=== PATIENT | female | born 1985 | race Caucasian/White ===

== ENCOUNTER 2016-11-18 18:56 | Emergency (ER) | payer OTHER, MEDICAID ==
[2016-11-18 19:04] VITALS: BP 150/97
[2016-11-18 19:10] VITALS: BMI 57.5
--- NOTE | 2016-11-18 20:39 | DR.GENAD ---
HPI - PCP Primary Care Physician: Dalila Hernandez - Complaint/Symptoms Chief Complaint Doctors Comments: Patient state she fell at the door step at home twisting her left foot with pain and swelling of her left foot. Patient states she was on all fours but she could get up and has been hopping on her foot. She denies head trauma or LOC. She denies neck or back pain. She denies fever, chills or headache or dizziness. Chief Complaint:: " Left foot hurting and swelling. Fell down door steps" Self Treatment fo Chief Complaint: Swelling noted to left outside of foot. - Nurses notes reviewed Nurses Notes Review: Yes - Source History Provided: Patient - Mode of Arrival Mode of Arrival: Ambulatory - Timing Onset of Chief Complaint: 11/18/16 Came on: Suddenly - Duration Duration: Constant How lon Duration: Hours - Location Location: left foot - Severity Severity: Moderate - Modifying Factors Worsens:: walking and movement Improves:: nothing PMH - PMH Past Medical History: Yes Past Medical History: Hypertension Past Surgical History: No - Family History History of Family Medical Conditions: Yes Family Medical History: Cancer, Hypertension - Social History Alcohol Use: None Do you use any recreational Drugs:: No Lives With: Family Lives Where: Home - infectious screening Have you traveled outside the country in the last 6 months?: No ROS - Review of Systems Constitutional: No Symptoms Reported. negative: See HPI, Chills, Diaphoresis, Fever, Malaise, Weakness, Irritable, Fatigue, Loss of Appetite, Other Eyes: No Symptoms Reported. negative: See HPI, Eye Pain, Blurred Vision, Tearing, Discharge, Photophobia, Diplopia, Other ENTM: No Symptoms Reported Respiratoy: No Symptoms Reported. negative: See HPI, Productive Cough, Non- Productive Cough, Moist Cough, Dry Cough, Hacking Cough, Barking Cough, Brassy Cough, Orthopnea, Short of Breath, Stridor, Wheezing, Hemoptysis, Other Cardiovascular: No Symptoms Reported Gastrointestinal/Abdominal: No Symptoms Reported. negative: See HPI, Abdominal Pain, Constipation, Diarrhea, Nausea, Vomiting, Food Intolerance, Other Genitourinary: No Symptoms Reported Neurological: No Symptoms Reported, Problems Walking. negative: See HPI, Anxiety, Depressed, Emotional Problems, Headache, Numbness, Paresthesia, Pre- existing Deficit, Seizure, Tingling, Tremors, Weakness, Dizziness, Speech Problem, Other Musculoskeletal: No Symptoms Reported, Left, Foot Integumentary: No Symptoms Reported. negative: See HPI, Change in Color, Change in Hair/Nails, Dryness, Lesions, Lumps, Rash, Itching, Wound, Bruises, Juandice, Other Hematologic/Lymphatic: No Symptoms Reported. negative: See HPI, Anemia, Blood Clots, Easy Bleeding, Easy Bruising, Swollen Glands, Lymphadenopathy, Other Endocrine: No Symptoms Reported. negative: See HPI, Excessive Sweating, Flushing, Intolerance to Cold, Intolerance to Heat, Increased Hunger, Increased Thirst, Increased Urine, Unexplained Weight Gain, Unexplained Weight Loss, Failure to Thrive, Decreased Appetite, Other Psychiatric: No Symptoms Reported PE - Vital Signs Vitals: Temperature 98.0 F Pulse Rate 99 Respiratory Rate 19 Blood Pressure 150/97 O2 Sat by Pulse Oximetry 99 - General Limitations: No Limitations General Appearance: Alert, In Distress (moderate) - Head Head Exam: Normal Inspection, Atraumatic, Normocephalic - Eyes Eye exam: Normal Appearance, PERRL, EOMI. negative: Scleral Icterus, Conjunctival Injection, Nystagmus, Miosis, Mydrasis, Periorbital Swelling, Periorbital Tenderness, Other - ENT ENT Exam: Normal Exam, Normal Oropharynx, Normal External Ear Exam, Mucous Membranes Moist, TM's Normal Bilaterally External Ear Exam: Normal External Inspection TM/Canal Exam: Bilateral Normal Nose Exam: Normal Nose Exam Mouth Exam: Normal Inspection Throat Exam: Normal Inspection - Neck Neck Exam: Normal Inspection, Full ROM, Trachea Midline. negative: Tenderness, Meningismus, Lymphadenopathy, Thyromegaly, Other - Chest Chest Inspection: Normal Inspection, Symmetric Chest Wall Rise. 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 with pain on movement), Normal Capillary Refill - Back Back Exam: Normal Inspection, Full ROM - Neurologic Neurological Exam: Alert, Oriented X3, CN II-XII Intact, Normal Gait - Psychiatric Psychiatric Exam: Normal Affect - Skin Skin Exam: Warm, Dry, Intact, Normal Color ROR - Labs Reviewed Laboratory Results Reviewed?: Yes (all x-ray results reviewed and discussed with patient and mother) - XRAY XRAY Interpreted by: Both (Left foot: Mildly displalced transverse fracture base 5th metatarsal bone with mild swelling soft tissue) - Diagnosis Discharge Problem: Left foot pain Metatarsal bone fracture Qualifiers: Encounter type: initial encounter Metatarsal bone: fifth Fracture type: closed Fracture alignment: displaced Laterality: left Qualified Code(s): S92.352A - Displaced fracture of fifth metatarsal bone, left foot, initial encounter for closed fracture - Discharge Plan Disposition: HOME, SELF-CARE Condition: Stable Prescriptions: Acetaminophen/Codeine Tab [TYLENOL w/CODEINE #3 (300 MG/30 MG) *] 1 tab PO Q4- 6H PRN #45 tab PRN Reason: Pain Ibuprofen [MOTRIN TAB 800 MG *] 800 mg PO BID PRN #60 tab PRN Reason: Pain/Inflammation - Follow ups/Referrals Follow ups/Referrals: Dalila Hernandez [Primary Care Provider] - 3 days VIN ARCOS [STAFF PHYSICIAN] - 3 days BA FARRIS [CONSULTING PHYSICIAN] - 3 days - Instructions Instructions: Metatarsal Fracture, Hypertension, [id number]
--- NOTE | 2016-11-18 20:58 | RAD ---
HISTORY: Pain Study: left foot series Comparison: None Findings: There is a transverse fracture along the base of the 5th metatarsal bone which is mildly displaced. There is mild soft tissue swelling around the midfoot. The tarsal bones are intact and the joint spa dennise are normal. There are small subchondral cysts or erosive changes along the head of the 1st metat arsal bone laterally. IMPRESSION: Mildly displaced transverse fracture along the base of the 5th metatarsal bone with mild soft tissue swelling around the midfoot. Questionable cortical erosions or cysts along the head of the 1st metatarsal bone. Reported By:
== END 2016-11-18 21:47 | disposition home or self-care (01) ==
LOC: ER 18:56
DX: S92.352A Displaced fracture of fifth metatarsal bone, left foot, initial encounter for closed fracture (principal); M79.672 Pain in left foot; W19.XXXA Unspecified fall, initial encounter; Y92.009 Unspecified place in unspecified non-institutional (private) residence as the place of occurrence of the external cause
CPT/HCPCS: 73630; 99282; 99283

== ENCOUNTER → 2016-11-21 | Outpatient (CLI) | payer OTHER, MEDICAID ==
[2016-11-18 19:04] VITALS: BP 150/97
[2016-11-21 10:29] LABS: BASOPHILS # (AUTO) 0.1 X10^3/uL (0.0-0.1); BASOPHILS % (AUTO) 1.2 % (0.2-1.0); EOSINOPHILS # (AUTO) 0.4 x10^3/uL (0.0-0.2); EOSINOPHILS % (AUTO) 3.3 % (0.9-2.9); HEMATOCRIT 38.7 % (36.0-47.0); HEMOGLOBIN 12.3 g/dL (12.0-16.0); LYMPHOCYTES % (AUTO) 17.4 % (21.0-51.0); MEAN CORPUSCULAR HEMOGLOBIN 25.3 pg (27.0-34.0); MEAN CORPUSCULAR HGB CONC 31.7 g/dL (33.0-35.0); MEAN CORPUSCULAR VOLUME 79.8 fL (80.0-100.0); MEAN PLATELET VOLUME 10.3 fL (7.4-11.0); MONOCYTES # (AUTO) 0.8 x10^3/uL (0.3-0.8); MONOCYTES % (AUTO) 7.2 % (0.0-13.0); NEUTROPHILS # (AUTO) 8.3 x10^3/uL (2.2-4.8); NEUTROPHILS % (AUTO) 70.9 % (42.0-75.0); PLATELET COUNT 241 X10^3/uL (150.0-450.0); RED BLOOD COUNT 4.85 X10^6/uL (3.5-5.4); RED CELL DISTRIBUTION WIDTH 16.1 % (11.6-16.5); WHITE BLOOD COUNT 11.7 X10^3/uL (3.6-10.0)
--- NOTE | 2016-11-21 10:47 | RAD ---
HISTORY: Preoperative evaluation Study: Two view chest Comparison: None Findings: The lungs are clear without consolidation, effusion or pneumothorax. The cardiac and mediastinal co ntours are within normal limits. The soft tissues are unremarkable. IMPRESSION: 1. No acute cardiopulmonary abnormality. Reported By:
[2016-11-21 10:50] LABS: HYPOCHROMASIA SLIGHT
[2016-11-21 10:51] LABS: PLATELET MORPHOLOGY COMMENT NORMAL (NORMAL)
[2016-11-21 11:03] LABS: ERYTHROCYTE SEDIMENTATION RATE 18 MM/HOUR (0-20)
[2016-11-21 11:31] LABS: ALANINE AMINOTRANSFERASE 18 Units/L (12-78); ALBUMIN 3.4 g/dL (3.4-5.0); ALKALINE PHOSPHATASE 91 Units/L (46-116); ASPARTATE AMINO TRANSFERASE 13 Units/L (15-37); BLOOD UREA NITROGEN 16 mg/dL (7-18); CALCIUM 8.5 mg/dL (8.5-10.1); CARBON DIOXIDE 23.8 mmol/L (21-32); CHLORIDE 107 mmol/L (98-107); CREATININE 0.83 mg/dL (0.55-1.02); GLUCOSE 100 mg/dL (65-99); SODIUM 142 mmol/L (136-145); TOTAL PROTEIN 7.2 g/dL (6.4-8.2); eGFR BLACK RACES > 60 (>60); eGFR NON BLACK RACES > 60 (>60)
[2016-11-21 12:01] LABS: SERUM PREGNANCY TEST, QUAL NEGATIVE <10 mIU/mL
== END ==
LOC: LAB 09:55
PROVIDERS: ATTEND Orthopaedic Surgery
DX: Z01.818 Encounter for other preprocedural examination (principal); Z01.810 Encounter for preprocedural cardiovascular examination; Z01.811 Encounter for preprocedural respiratory examination; Z11.8 Encounter for screening for other infectious and parasitic diseases; Z32.00 Encounter for pregnancy test, result unknown; S92.352A Displaced fracture of fifth metatarsal bone, left foot, initial encounter for closed fracture; X58.XXXA Exposure to other specified factors, initial encounter
CPT/HCPCS: 36415; 71020; 80053; 84703; 85025; 85652; 87641; 93005; 93010

== ENCOUNTER 2016-11-23 06:36 | Day surgery (SDC) | payer OTHER, MEDICAID ==
[~2016-11-23 06:36] MED LIST: D5 LR 1000 ML 1,000 ML IV ONE; NS 50 ML IV + SPIKE MINIBAG* 100 ML IV ONE
[2016-11-23] MEDS ORDERED: FENTANYL INJ 100 mcg ONE (07:09)
[2016-11-23] MEDS: NAROPIN 0.75% ONE ×2 (07:15→07:24)
[2016-11-23] MEDS: ANCEF VIAL 1 GM ONE ×2 (07:24→07:59)
[2016-11-23] MEDS: XYLOCAINE 2 % (PLAIN) ONE ×2 (07:26→07:32)
[2016-11-23] MEDS ORDERED: MARCAINE 0.25% INJ ONE (07:58)
[2016-11-23] MEDS ORDERED: DIPRIVAN VIAL 20 ML ONE (08:12)
[2016-11-23] MEDS ORDERED: NS IRRIGATION 1000 ML 1,000 ML with BACITRACIN VIAL 50,000 UNT IR ONE ×2 (08:26)
[2016-11-23] MEDS ORDERED: BACTROBAN OINT ONE (08:58)
[2016-11-23] MEDS ORDERED: PHENERGAN INJ 25 MG IVP PRN (09:18)
[2016-11-23] MEDS ORDERED: DILAUDID INJ IVP PRN (09:18)
[2016-11-23] MEDS ORDERED: BENADRYL INJ 50 MG VIAL IVP PRN (09:18)
[2016-11-23] MEDS ORDERED: REGLAN INJ 10 MG VIAL IVP PRN (09:18)
[2016-11-23] MEDS ORDERED: ZOFRAN INJ 4 MG VIAL IVP PRN (09:18)
--- NOTE | 2016-11-23 09:38 | RAD ---
HISTORY: Postop ORIF Study: Two views left foot Comparison: 11/18/2026 Findings: Interval placement of a single fixation screw traversing the 5th metatarsal fracture with stable fra cture separation. There is soft tissue swelling noted. The remaining osseous structures appear intac t and stable. IMPRESSION: 1. Interval fixation of proximal 5th metatarsal fracture as described Reported By:
[2016-11-23 10:57] VITALS: BP 100/53
[2016-11-23] MEDS ORDERED: XYLOCAINE 2 % (PLAIN) ONE (16:06)
[2016-11-23] MEDS ORDERED: DIPRIVAN VIAL ONE (16:06)
[2016-11-23] MEDS ORDERED: SUPRANE IN ONE (16:06)
[2016-11-23] MEDS ORDERED: VERSED ONE (16:06)
== END 2016-11-23 10:54 | disposition home or self-care (01) | DRG 505 ==
LOC: SURG1 06:36
PROVIDERS: ATTEND Orthopaedic Surgery
PROC: 0QSP04Z Reposition Left Metatarsal with Internal Fixation Device, Open Approach (ICD-10-PCS; principal; 2016-11-23 07:30)
DX: S92.352A Displaced fracture of fifth metatarsal bone, left foot, initial encounter for closed fracture (principal); X58.XXXA Exposure to other specified factors, initial encounter
CPT/HCPCS: 73630; 76000; S0020; J0690; J2001; J2250; J3010; J3490; J7120

== ENCOUNTER → 2016-12-30 | Outpatient (CLI) | payer OTHER, MEDICAID ==
[2016-12-30 09:54] LABS: BASOPHILS # (AUTO) 0.1 X10^3/uL (0.0-0.1); BASOPHILS % (AUTO) 0.8 % (0.2-1.0); EOSINOPHILS # (AUTO) 0.2 x10^3/uL (0.0-0.2); EOSINOPHILS % (AUTO) 1.5 % (0.9-2.9); HEMATOCRIT 43.8 % (36.0-47.0); LYMPHOCYTES # (AUTO) 2.5 X10^3/uL (1.3-2.9); LYMPHOCYTES % (AUTO) 21.8 % (21.0-51.0); MEAN CORPUSCULAR HEMOGLOBIN 25.6 pg (27.0-34.0); MEAN PLATELET VOLUME 10.8 fL (7.4-11.0); MONOCYTES # (AUTO) 0.8 x10^3/uL (0.3-0.8); MONOCYTES % (AUTO) 6.7 % (0.0-13.0); NEUTROPHILS # (AUTO) 7.9 x10^3/uL (2.2-4.8); NEUTROPHILS % (AUTO) 69.2 % (42.0-75.0); PLATELET COUNT 261 X10^3/uL (150.0-450.0); RED BLOOD COUNT 5.48 X10^6/uL (3.5-5.4); RED CELL DISTRIBUTION WIDTH 15.8 % (11.6-16.5); WHITE BLOOD COUNT 11.4 X10^3/uL (3.6-10.0)
[2016-12-30 10:07] LABS: PLATELET MORPHOLOGY COMMENT NORMAL (NORMAL)
[2016-12-30 10:54] LABS: ALANINE AMINOTRANSFERASE 22 Units/L (12-78); ALBUMIN 3.8 g/dL (3.4-5.0); ALKALINE PHOSPHATASE 103 Units/L (46-116); ASPARTATE AMINO TRANSFERASE 11 Units/L (15-37); BLOOD UREA NITROGEN 19 mg/dL (7-18); CALCIUM 9.5 mg/dL (8.5-10.1); CARBON DIOXIDE 26.9 mmol/L (21-32); CHLORIDE 103 mmol/L (98-107); CHOL/HDL RATIO 4.6 (0.0-5.0); CHOLESTEROL 142 mg/dL (0-200); CREATININE 0.81 mg/dL (0.55-1.02); GLUCOSE 103 mg/dL (65-99); HDL CHOLESTEROL 31 mg/dL (40-60); SODIUM 139 mmol/L (136-145); TOTAL PROTEIN 8.1 g/dL (6.4-8.2); TRIGLYCERIDES 126 mg/dL (0-150); eGFR BLACK RACES > 60 (>60); eGFR NON BLACK RACES > 60 (>60)
== END ==
LOC: LAB 08:08
PROVIDERS: ATTEND Nurse Practitioner Family
DX: I10 Essential (primary) hypertension (principal); E78.6 Lipoprotein deficiency
CPT/HCPCS: 36415; 80053; 80061; 85025

== ENCOUNTER → 2017-01-09 | Outpatient (CLI) | payer OTHER, MEDICAID ==
--- NOTE | 2017-01-09 13:44 | RAD ---
HISTORY: Follow up fracture Study: Left foot three view Comparison: November 23, 2016 Findings: Once again the patient is status post open reduction and internal fixation of a transverse fracture of the base of the 5th metacarpal. There is a screw present. Position alignment is unchanged. There is no obvious healing as yet. The remainder of the bones and joints of the foot are intact and jordan lly aligned. IMPRESSION: No significant change from the prior examination Reported By:
== END ==
LOC: RAD 12:49
PROVIDERS: ATTEND Orthopaedic Surgery
DX: S92.352A Displaced fracture of fifth metatarsal bone, left foot, initial encounter for closed fracture (principal); X58.XXXA Exposure to other specified factors, initial encounter
CPT/HCPCS: 73630

== ENCOUNTER → 2017-08-27 | Outpatient (CLI) | payer OTHER, MEDICAID ==
--- NOTE | 2017-08-27 14:24 | RAD ---
Examination: Left foot, three views History: Foot fracture Comparison reference: 01/09/2017 Findings: Re-demonstrated is the presence of a surgical screw fixing a healed fracture of the proxima l left 5th metatarsal. There is no evidence for hardware abnormality, infection or new injury. Joint spaces are preserved. Impression: ORIF of healed fracture proximal left 5th metatarsal. No acute abnormality noted. Reported By:
== END ==
LOC: RAD 13:50
PROVIDERS: ATTEND Orthopaedic Surgery
DX: S92.902A Unspecified fracture of left foot, initial encounter for closed fracture (principal); X58.XXXA Exposure to other specified factors, initial encounter
CPT/HCPCS: 73630

== ENCOUNTER → 2017-09-11 | Outpatient (CLI) | payer OTHER, MEDICAID ==
[2017-09-11 09:43] LABS: ALANINE AMINOTRANSFERASE 37 Units/L (12-78); ALBUMIN 3.6 g/dL (3.4-5.0); ALKALINE PHOSPHATASE 90 Units/L (46-116); ASPARTATE AMINO TRANSFERASE 20 Units/L (15-37); BLOOD UREA NITROGEN 15 mg/dL (7-18); CALCIUM 9.2 mg/dL (8.5-10.1); CARBON DIOXIDE 26.9 mmol/L (21-32); CHLORIDE 102 mmol/L (98-107); CHOL/HDL RATIO 4.7 (0.0-5.0); CHOLESTEROL 140 mg/dL (0-200); CREATININE 0.83 mg/dL (0.55-1.02); HDL CHOLESTEROL 30 mg/dL (40-60); SODIUM 135 mmol/L (136-145); TOTAL PROTEIN 7.6 g/dL (6.4-8.2); TRIGLYCERIDES 109 mg/dL (0-150); TSH (3RD GENERATION) 1.771 uIU/mL (0.358-3.74); eGFR BLACK RACES > 60 (>60); eGFR NON BLACK RACES > 60 (>60)
[2017-09-11 09:45] LABS: BASOPHILS # (AUTO) 0.1 X10^3/uL (0.0-0.1); BASOPHILS % (AUTO) 0.7 % (0.2-1.0); EOSINOPHILS # (AUTO) 0.1 x10^3/uL (0.0-0.2); EOSINOPHILS % (AUTO) 1.2 % (0.9-2.9); HEMATOCRIT 41.8 % (36.0-47.0); HEMOGLOBIN 13.6 g/dL (12.0-16.0); LYMPHOCYTES # (AUTO) 1.8 X10^3/uL (1.3-2.9); LYMPHOCYTES % (AUTO) 17.8 % (21.0-51.0); MEAN CORPUSCULAR HEMOGLOBIN 26.2 pg (27.0-34.0); MEAN CORPUSCULAR HGB CONC 32.5 g/dL (33.0-35.0); MEAN CORPUSCULAR VOLUME 80.6 fL (80.0-100.0); MEAN PLATELET VOLUME 11.1 fL (7.4-11.0); MONOCYTES # (AUTO) 0.8 x10^3/uL (0.3-0.8); MONOCYTES % (AUTO) 7.7 % (0.0-13.0); NEUTROPHILS # (AUTO) 7.5 x10^3/uL (2.2-4.8); NEUTROPHILS % (AUTO) 72.6 % (42.0-75.0); PLATELET COUNT 252 X10^3/uL (150.0-450.0); RED BLOOD COUNT 5.19 X10^6/uL (3.5-5.4); RED CELL DISTRIBUTION WIDTH 15.6 % (11.6-16.5); WHITE BLOOD COUNT 10.3 X10^3/uL (3.6-10.0)
== END ==
LOC: LAB 08:51
PROVIDERS: ATTEND Psychiatry & Neurology Neurology
DX: E66.01 Morbid (severe) obesity due to excess calories (principal); I10 Essential (primary) hypertension
CPT/HCPCS: 36415; 80053; 80061; 83036; 84443; 85025